=== PATIENT | female | born 1970 | race Caucasian/White ===

== ENCOUNTER 2021-05-11 14:26 | Emergency (ER) | payer BC ==
[~2021-05-11] VITALS: Ht 157.5 cm; Wt 80.0 kg
--- NOTE | 2021-05-11 15:09 | PHYS DOC ---
Past Medical History Past Medical History: Hypertension Past Surgical History: Appendectomy, Cholecystectomy Smoking Status: Current Every Day Smoker Alcohol Use: None General Adult EDM: Chief Complaint: HYPERTENSION HPI: HPI: Patient is a 50-year-old female that presents today for high blood pressure. Patient states that she has been out of her medications for the last 2 months, she states she did not have $40 to go see her primary care physician, so she presents today to the emergency department for medication refill and to be seen, she states that last night and this morning she had some chest pain in association with the hypertension. Patient states she does not have chest pain at this time or shortness of breath but is concerned because her blood pressure is elevated. Patient states she takes atenolol 100 mg daily and amlodipine 10 mg daily for management of her hypertension. Patient does state that she smokes on a daily basis as well. Review of Systems: Review of Systems: Constitutional: Denies fever or chills. [] Eyes: Denies change in visual acuity. [] HENT: Denies nasal congestion or sore throat. [] Respiratory: Denies cough or shortness of breath. [] Cardiovascular: Denies chest pain or edema. [] GI: Denies abdominal pain, nausea, vomiting, bloody stools or diarrhea. [] : Denies dysuria. [] Musculoskeletal: Denies back pain or joint pain. [] Integument: Denies rash. [] Neurologic: Denies headache, focal weakness or sensory changes. [] Endocrine: Denies polyuria or polydipsia. [] Lymphatic: Denies swollen glands. [] Psychiatric: Denies depression or anxiety. [] Heart Score: C/O Chest Pain: Yes HEART Score for Chest Pain: HEART Score for Chest Pain Response (Comments) Value History Moderately Suspicious 1 ECG Normal 0 Age >45 - < 65 1 Risk Factors >3 Risk Factors or Hx CAD 2 Troponin < Normal Limit 0 Total 4 Risk Factors: Risk Factors: DM, Current or recent (<one month) smoker, HTN, HLP, family history of CAD, obesity. Risk Scores: Score 0 - 3: 2.5% MACE over next 6 weeks - Discharge Home Score 4 - 6: 20.3% MACE over next 6 weeks - Admit for Clinical Observation Score 7 - 10: 72.7% MACE over next 6 weeks - Early Invasive Strategies Allergies: Allergies: Allergies Coded Allergies Type Severity Reaction Last Updated Verified Penicillins Allergy Intermediate 05/11/21 Yes Sulfa (Sulfonamide Antibiotics) Allergy Intermediate 05/11/21 Yes Tetanus Vaccines and Toxoid Allergy Intermediate 05/11/21 Yes codeine Allergy Intermediate 05/11/21 Yes morphine Allergy Intermediate 05/11/21 Yes Physical Exam: PE: Constitutional: Well developed, well nourished, no acute distress, non-toxic appearance. [] HENT: Normocephalic, atraumatic, bilateral external ears normal, oropharynx moist, no oral exudates, nose normal. [] Eyes: PERRLA, EOMI, conjunctiva normal, no discharge. [] Neck: Normal range of motion, no tenderness, supple, no stridor. [] Cardiovascular:Heart rate regular rhythm, no murmur [] Lungs & Thorax: Bilateral breath sounds clear to auscultation [] Abdomen: Bowel sounds normal, soft, no tenderness, no masses, no pulsatile masses. [] Skin: Warm, dry, no erythema, no rash. [] Back: No tenderness, no CVA tenderness. [] Extremities: No tenderness, no cyanosis, no clubbing, ROM intact, no edema. [] Neurologic: Alert and oriented X 3, normal motor function, normal sensory function, no focal deficits noted. [] Psychologic: Affect normal, judgement normal, mood normal. [] Current Patient Data: Labs: Laboratory Tests Test 05/11/21 15:07 White Blood Count 10.2 x10^3/uL Red Blood Count 5.01 x10^6/uL Hemoglobin 16.0 g/dL Hematocrit 46.9 % Mean Corpuscular Volume 94 fL Mean Corpuscular Hemoglobin 32 pg Mean Corpuscular Hemoglobin Concent 34 g/dL Red Cell Distribution Width 12.8 % Platelet Count 239 x10^3/uL Neutrophils (%) (Auto) 61 % Lymphocytes (%) (Auto) 29 % Monocytes (%) (Auto) 5 % Eosinophils (%) (Auto) 4 % Basophils (%) (Auto) 1 % Neutrophils # (Auto) 6.2 x10^3/uL Lymphocytes # (Auto) 3.0 x10^3/uL Monocytes # (Auto) 0.6 x10^3/uL Eosinophils # (Auto) 0.4 x10^3/uL Basophils # (Auto) 0.1 x10^3/uL D-Dimer (Sabina) < 0.27 ug/mlFEU Sodium Level 140 mmol/L Potassium Level 3.2 mmol/L Chloride Level 104 mmol/L Carbon Dioxide Level 26 mmol/L Anion Gap 10 Blood Urea Nitrogen 4 mg/dL Creatinine 1.0 mg/dL Estimated GFR (Cockcroft-Gault) 58.2 BUN/Creatinine Ratio 4 Glucose Level 138 mg/dL Calcium Level 8.7 mg/dL Total Bilirubin 0.2 mg/dL Aspartate Amino Transf (AST/SGOT) 23 U/L Alanine Aminotransferase (ALT/SGPT) 30 U/L Alkaline Phosphatase 88 U/L Troponin I High Sensitivity < 4 ng/L Total Protein 6.2 g/dL Albumin 3.1 g/dL Albumin/Globulin Ratio 1.0 Vital Signs: Vital Signs Date Time Temp Pulse Resp B/P (MAP) Pulse Ox O2 Delivery O2 Flow Rate FiO2 05/11/21 15:49 96 18 141/69 (93) 95 05/11/21 14:49 97 16 143/89 (107) 96 05/11/21 14:32 97.5 105 18 142/100 (114) 96 Room Air 97.5 Vital Signs Date Time Temp Pulse Resp B/P (MAP) Pulse Ox O2 Delivery O2 Flow Rate FiO2 05/11/21 14:32 97.5 105 18 142/100 (114) 96 Room Air 97.5 EKG: EKG: EKG done at [address] Lorenzo at 1459 shows sinus tachycardia at a rate of 101 with a MT interval of 154 ms with a QTC of 436 ms no STEMI [] Radiology/Procedures: Radiology/Procedures: REASON: CHEST PAIN,HIGH BLOOD PRESSURE PROCEDURE: PORTABLE CHEST 1V EXAMINATION: XR CHEST 1V CLINICAL HISTORY: Chest pain, hypertension. EXAM DATE/TIME: 05/11/2021 2:54 PM COMPARISON: None FINDINGS: Lines, Tubes, and Devices: None. Cardiomediastinal Silhouette: Within normal limits. Lungs and Pleura: No evidence of focal airspace consolidation or pleural effusion. Nonspecific mild interstitial prominence. Bones and Soft Tissues: Degenerative changes in the thoracic spine. IMPRESSION: No evidence of acute cardiopulmonary abnormality. Nonspecific mild interstitial prominence, cannot exclude minimal edema. Electronically signed by: Bob Marx DO (05/11/2021 3:09 PM) [facility] [] Course & Med Decision Making: Course & Med Decision Making Pertinent Labs and Imaging studies reviewed. (See chart for details) 1555 reassessment shows her blood pressure is 141/69, she has having no chest pain or headache at this time. Reviewed radiological and laboratory results with patient, did inform her her cardiac lab test was negative for any cardiac issues, patient's prescription for her blood pressure will be refilled for her, I did encourage her to restart calling the clinics listed on her discharge paperwork to get an appointment for medical management of her high blood pressure, did advise her to also quit smoking that would also help with her blood pressure issues. Patient verbalized understanding of this and is agreeable to the plan of care. Rick Disclaimer: Rick Disclaimer: This electronic medical record was generated, in whole or in part, using a voice recognition dictation system. Departure Departure Impression: Primary Impression: Hypertension Qualified Codes: I10 - Essential (primary) hypertension Disposition: HOME / SELF CARE / HOMELESS Condition: STABLE Referrals: NO PCP (PCP) Patient Instructions: Hypertension, Smoking Cessation Additional Instructions: Atenolol 100 mg take 1 tablet daily for your blood pressure Amlodipine 10 mg take 1 tablet daily for your blood pressure Follow-up soon as possible with the clinics listed below for further management of your hypertensive medications Stop smoking Return to the emergency department for chest pain, headache not relieved by Tylenol or taking your blood pressure medications, shortness of air, or your lips or face become blue [facility] [address] [place] [address] [facility] [address] [place] [address] [facility] [address] [place] [address] [facility] [address] [place] [address] [facility] [address] [place] [address] [facility] [address] [place] [address] [facility] [address] [place] [address] [facility] [address] [place] [address] [employer] [address] [place] [address] [facility] [address] [place] [address] Scripts Amlodipine Besylate (NORVASC) 10 Mg Tablet 10 MG PO DAILY, #30 TAB Prov: BETTY SWENSON WATER USE INSPECTOR 05/11/21 Atenolol (ATENOLOL) 50 Mg Tablet 1 TAB PO DAILY, #30 TAB 0 Refills Prov: BETTY SWENSON WATER USE INSPECTOR 05/11/21 BETTY SWENSON WATER USE INSPECTOR May 11, 2021 15:09
[2021-05-11 15:17] LABS: BASO # 0.1 x10^3/uL (0.0-0.2); BASO % 1 % (0-3); EOS # 0.4 x10^3/uL (0.0-0.7); EOS % 4 % (0-3); HEMATOCRIT 46.9 % (36.0-47.0); LYMPH % 29 % (24-48); MEAN CORPUSCULAR HEMOGLOBIN 32 pg (25-35); MEAN CORPUSCULAR HGB CONC 34 g/dL (31-37); MEAN CORPUSCULAR VOLUME 94 fL (79-100); MONO # 0.6 x10^3/uL (0.0-1.1); MONO % 5 % (0-9); NEUT # 6.2 x10^3/uL (1.8-7.7); NEUT % 61 % (31-73); PLATELET COUNT 239 x10^3/uL (140-400); RED BLOOD COUNT 5.01 x10^6/uL (3.50-5.40); RED CELL DISTRIBUTION WIDTH 12.8 % (11.5-14.5); WHITE BLOOD COUNT 10.2 x10^3/uL (4.0-11.0)
[2021-05-11 15:25] LABS: CALCIUM 8.7 mg/dL (8.5-10.1); GFR 58.2; POTASSIUM 3.2 mmol/L (3.5-5.1)
[2021-05-11 15:31] LABS: ALBUMIN 3.1 g/dL (3.4-5.0); TOTAL BILIRUBIN 0.2 mg/dL (0.2-1.0); TOTAL PROTEIN 6.2 g/dL (6.4-8.2)
[2021-05-11 15:49] VITALS: BP 141/69
[2021-05-11] MEDS ORDERED: ATEN50TA PO (16:00)
[2021-05-11] MEDS ORDERED: AMLO10TA4 PO (16:00)
--- NOTE | 2021-05-11 18:05 | EKG ---
[facility] [address] [place] [address] Test Date: 2021-05-11 Test Time: 13:57:13 Pat Name: VIRGILIO MATHEWS Department: Room: Gender: F Process Planner: : [id number] Requested By: BETTY SWENSON Order Number: [id number] Reading MD: Measurements Intervals [place] Rate: 101 P: 43 IL: 154 QRS: 43 QRSD: 82 T: 63 QT: 336 QTc: 436 Interpretive Statements SINUS TACHYCARDIA LEFT ATRIAL ABNORMALITY ABNORMAL ECG RI6.02 No previous ECG available for comparison
== END 2021-05-11 16:21 | disposition home or self-care (01) ==
LOC: ER 14:26
DX: I10 Essential (primary) hypertension (principal); F17.200 Nicotine dependence, unspecified, uncomplicated; Z88.0 Allergy status to penicillin; Z88.2 Allergy status to sulfonamides; Z88.5 Allergy status to narcotic agent; Z88.7 Allergy status to serum and vaccine
CPT/HCPCS: 36415; 71045; 80053; 83880; 84484; 85025; 85379; 93005; 99285-25